=== PATIENT | male | born 1945 | race Caucasian/White ===

== ENCOUNTER 2020-10-08 15:17 | Outpatient (REF) | payer MEDICARE, SELFPAY | END 2020-10-08 15:18 | disposition home or self-care (01) | LOC: HO.LAB 15:17 | PROVIDERS: PCP Internal Medicine; Visit Provider Internal Medicine | DX: Z20.828 Contact with and (suspected) exposure to other viral communicable diseases (principal) | CPT/HCPCS: C9803; U0003 ==

== ENCOUNTER 2021-01-21 11:02 | Emergency (ER) | payer OTHER, MEDICARE, SELFPAY ==
--- NOTE | ~2021-01-21 | CT_ITS ---
EXAMINATION: CT HEAD WITHOUT CONTRAST CLINICAL INFORMATION: Dizziness COMPARISON: None TECHNIQUE: Contiguous axial imaging was performed from the skull base to vertex without intravenous administration of contrast. This CT examination was performed using dose optimization techniques as appropriate, variously including the following: *Automated exposure control *Adjustment of mA and/or kV according to patient size (this includes techniques or standardized protocols for targeted exams where dose is matched to indication/reason for exam; i.e. extremities or head) *Use of iterative reconstruction technique DLP: 77 mGy-cm FINDINGS: There is no evidence of acute intracranial hemorrhage or territorial infarction. No abnormal mass effect or midline shift is seen. Galvan to white matter differentiation is well preserved. No extra-axial fluid collections are identified. The ventricles are normal in size. There is no abnormal attenuation within the brain parenchyma. The osseous structures and soft tissues are normal. The mastoid air cells and visualized portions of the paranasal sinuses are well aerated. CT/CT head/brain wo con IMPRESSION: Unremarkable exam.
[2021-01-21 11:11] VITALS: BP 127/75; PULSE 61; RESP 16; TEMP 36.6; O2SAT 94; BMI 29.7
[2021-01-21 12:07] VITALS: BP 128/57; PULSE 61
[2021-01-21 12:08] VITALS: BP 142/67; PULSE 58
[2021-01-21 12:09] VITALS: BP 133/76; PULSE 66
--- NOTE | 2021-01-21 12:18 | ECG_ITS ---
Test Reason : DIZZINESS Blood Pressure : / mmHG Vent. Rate : 057 BPM Atrial Rate : 057 BPM P-R Int : 176 ms QRS Dur : 102 ms QT Int : 474 ms P-R-T Axes : 045 -12 016 degrees QTc Int : 461 ms Sinus bradycardia Otherwise normal ECG No previous ECGs available Referred By: Generic ED Physician Electronically Signed By:PORTIA SIEGEL MD
--- NOTE | 2021-01-21 12:38 | ED_ITS ---
HPI - Dizziness General Chief Complaint: Dizziness Stated Complaint: dizziness Time Seen by Provider: 01/21/21 12:33 Source: patient Mode of arrival: ambulatory Limitations: no limitations History of Present Illness HPI Narrative: Patient states at 6am he got up and the room was spinning with nausea and vomiting MD elicited complaint: dizziness and difficulty walking Onset (ago): hour(s) Timing: sudden onset Severity: moderate Description: sense of movement and room spinning Exacerbating factors: movement/ambulation Associated symptoms: nausea and vomiting Related Data Home Medications Medication Instructions Recorded Confirmed amlodipine 10 mg tablet 10 mg PO DAILY 01/21/21 amlodipine 5 mg tablet 5 mg PO DAILY 01/21/21 atorvastatin 20 mg tablet 20 mg PO DAILY 01/21/21 clonidine 0.2 mg/24 hr weekly patch TRANSDERMAL 01/21/21 transdermal patch famotidine 20 mg tablet 20 mg PO BID 01/21/21 fluoxetine 20 mg tablet 20 mg PO DAILY 01/21/21 furosemide 20 mg tablet 20 mg PO DAILY 01/21/21 prednisone 20 mg tablet mg PO 01/21/21 Previous Rx's Medication Instructions Recorded meclizine 25 mg PO TID PRN #20 tab 01/21/21 Allergies Allergy/AdvReac Type Severity Reaction Status Date / Time quinlon Allergy Unknown Uncoded 01/21/20 00:00 sulfur Allergy Unknown Uncoded 01/21/20 00:00 Review of Systems Constitutional: Constitutional: Reports no additional constitutional complaints Eyes: Eyes: Reports no additional eye complaints ENT: Denies dizziness Cardiovascular: Cardiovascular: Reports no additional cardiovascular complaints Respiratory: Respiratory: Reports as per HPI Gastrointestinal: Gastrointestinal: Reports no additional gastrointestinal complaints Musculoskeletal: Musculoskeletal: Reports no additional musculoskeletal complaints Integumentary/Breasts: Skin/Breast: Denies rash Neurologic: Reports system reviewed and no additional complaints, except as documented, Denies dizziness and Denies Sensory deficit (Neuro) Psychiatric: Psychiatric: Denies anxiety [facility] Past Medical History Medical History Acute kidney failure High cholesterol HTN (hypertension) Social History Social History Alcohol intake: never Smoking Status: Never smoker Use of substances other than those prescribed or required for medical reasons: No Advance Directives: No Advance Directives Information Provided: Yes Physical Exam Vital Signs: Vital Signs: Last Vital Signs Temp 97.8 F 01/21/21 13:01 Pulse 60 01/21/21 14:18 Resp 19 01/21/21 14:18 BP 156/84 H 01/21/21 14:18 Pulse Ox 95 01/21/21 14:18 Body Mass Index 29.7 Const: General: healthy appearing Nutritional Appearance: average body habitus Orientation/consciousness: oriented to person and patient oriented x3 Limitations: no limitations HENMT: Head: Yes normal to inspection Ears: external ears normal General nose exam: Normal external nose present Mouth: Normal oral and palatal mucosa present and oropharynx normal Throat: Yes posterior oropharynx normal Eyes: General: appearance normal, both eyes and all related structures Neck: Other: supple Neck: Yes normal visual inspection Chest: Chest palpation & inspection: normal inspection of the chest Resp: Auscultation: clear to auscultation bilaterally Cardio: Jugular venous distension: no JVD Rate: regular rate Rhythm: regular rhythm Heart sounds: S1 normal heart sound present and S2 normal heart sound present GI: Inspection: Yes normal to inspection Palpation (GI): Soft to palpation, nontender and No hepatosplenomegaly present Auscultation: normal bowel sounds : General: Yes no CVA tenderness Back/Spine/Pelvis: Back: no CVA tenderness Skin: General skin exam: no rashes or lesions noted Neuro: General: oriented to person and patient oriented x3 Cranial nerves: Yes CN's II-XII intact bilaterally Motor exam (neuro): 5/5 motor strength present throughout Sensory Exam: No Sensory deficit (Neuro) Extrem: General: Yes normal to inspection Psych: Appearance: grossly normal Course Course Course Narrative: Alia negative Reevaluation(s) Reevaluation #1: Patient able to ambulate slightly dizzy with downward gaze, negative nystagmus, will dc on meclizine MDM - Dizziness MDM Narrative Medical decision making narrative: Patient with normal CT head, normal labs except for anemia and Creatinine which patient states is old. History consistent with vertigo jason reassess after meclizine Differential Diagnosis Differential diagnosis: Likely benign paroxysmal positional vertigo, vertebral basilar insufficiency and transient cerebral ischemia Lab Data Result diagrams: 01/21/21 13:12 01/21/21 12:24 Labs: Lab Results 01/21/21 01/21/21 01/21/21 Range/Units 12:24 12:24 12:24 WBC (4.8-10.8) X10*3/uL RBC (4.60-5.80) X10*6/uL Hgb (14.0-18.0) g/dl Hct (42-52) % MCV (80-98) fL MCH (27.0-33.0) pg MCHC (31.0-36.0) g/dl RDW (11.0-16.0) % Plt Count (160-400) X10*3/uL MPV (9.4-12.4) fL Immature Gran % (Auto) (0.0-0.4) % Neut % (Auto) (45-73) % Lymph % (Auto) (20-40) % [place] % (Auto) (2-11) % Eos % (Auto) (0-4) % Baso % (Auto) (0-2) % Lymph # (Auto) (1.2-4.9) X10*3/uL [place] # (Auto) (0.1-1.2) X10*3/uL Eos # (Auto) (0.0-0.4) X10*3/uL Baso # (Auto) (0.0-0.2) X10*3/uL Abs Immat Gran (auto) (0.00-0.03) X10*3/uL Absolute Neuts (auto) (2.0-8.3) X10*3/uL Absolute Nucleated RBC (0.0-0.012) X10*3/uL Nucleated RBC % (auto) (0.0-0.2) /100WBC Hold Blue Top SEE NOTE Sodium 141 (135-145) mmol/L Potassium 4.2 (3.3-5.1) mmol/L Chloride 104 (96-108) mmol/L Carbon Dioxide 26 (22-29) mmol/L Anion Gap 15 (12-20) BUN 19 H (9-16) mg/dL Creatinine 2.50 H (0.5-1.4) mg/dL Estim Creat Clear Calc 24.6 Estimated GFR 25 Random Glucose 109 (60-115) mg/dL Calcium 10.1 (8.4-10.2) mg/dL Troponin I High Sens 6.0 (<3.5-35.0) ng/L 01/21/21 Range/Units 13:12 WBC 6.6 (4.8-10.8) X10*3/uL RBC 3.43 L (4.60-5.80) X10*6/uL Hgb 10.4 L (14.0-18.0) g/dl Hct 31.7 L (42-52) % MCV 92.4 (80-98) fL MCH 30.3 (27.0-33.0) pg MCHC 32.8 (31.0-36.0) g/dl RDW 12.3 (11.0-16.0) % Plt Count 287 (160-400) X10*3/uL MPV 10.4 (9.4-12.4) fL Immature Gran % (Auto) 0.3 (0.0-0.4) % Neut % (Auto) 75.2 H (45-73) % Lymph % (Auto) 14.0 L (20-40) % [place] % (Auto) 8.7 (2-11) % Eos % (Auto) 0.9 (0-4) % Baso % (Auto) 0.9 (0-2) % Lymph # (Auto) 0.9 L (1.2-4.9) X10*3/uL [place] # (Auto) 0.6 (0.1-1.2) X10*3/uL Eos # (Auto) 0.1 (0.0-0.4) X10*3/uL Baso # (Auto) 0.1 (0.0-0.2) X10*3/uL Abs Immat Gran (auto) 0.02 (0.00-0.03) X10*3/uL Absolute Neuts (auto) 5.0 (2.0-8.3) X10*3/uL Absolute Nucleated RBC 0.000 (0.0-0.012) X10*3/uL Nucleated RBC % (auto) 0.0 (0.0-0.2) /100WBC Hold Blue Top Sodium (135-145) mmol/L Potassium (3.3-5.1) mmol/L Chloride (96-108) mmol/L Carbon Dioxide (22-29) mmol/L Anion Gap (12-20) BUN (9-16) mg/dL Creatinine (0.5-1.4) mg/dL Estim Creat Clear Calc Estimated GFR Random Glucose (60-115) mg/dL Calcium (8.4-10.2) mg/dL Troponin I High Sens (<3.5-35.0) ng/L Imaging Data CT scan - head: Radiologist's impression: no acute findings ECG Data Attestation: I personally reviewed and interpreted this ECG as follows: Interpretation: normal sinus rate of 50, bradycardia, no st or twave changes Discharge Plan Discharge Clinical Impression: Benign paroxysmal positional vertigo Qualifiers: Laterality: unspecified laterality Qualified Code(s): H81.10 - Benign paroxysmal vertigo, unspecified ear Patient Disposition: Home, Self-Care Instructions: Benign Paroxysmal Positional Vertigo (ED) Prescriptions: New meclizine 25 mg tablet 25 mg PO TID PRN (Reason: dizziness) Qty: 20 RF: 0 No Action amlodipine 5 mg tablet 5 mg PO DAILY RF: 0 furosemide 20 mg tablet 20 mg PO DAILY RF: 0 fluoxetine 20 mg tablet 20 mg PO DAILY RF: 0 atorvastatin 20 mg tablet 20 mg PO DAILY RF: 0 famotidine 20 mg tablet 20 mg PO BID RF: 0 clonidine 0.2 mg/24 hr patch weekly transdermal RF: 0 prednisone 20 mg tablet PO RF: 0 amlodipine 10 mg tablet 10 mg PO DAILY RF: 0 Referrals: Idris Bright MD [Primary Care Provider] - 2 days
[2021-01-21 12:56] LABS: Anion Gap 15 (12-20); Blood Urea Nitrogen 19 mg/dL (9-16); Calcium 10.1 mg/dL (8.4-10.2); Carbon Dioxide 26 mmol/L (22-29); Chloride 104 mmol/L (96-108); Creatinine Clr Calc Pharmacy 24.6; Estimated Glomerular Filt Rate 25; Glucose Random 109 mg/dL (60-115); Potassium 4.2 mmol/L (3.3-5.1); Sodium 141 mmol/L (135-145)
[2021-01-21] MEDS: Meclizine HCl 25 MG TABLET 50 MG PO (13:00)
[2021-01-21 13:01] VITALS: BP 145/78; PULSE 62; RESP 12; TEMP 36.6; O2SAT 98
[2021-01-21 13:19] LABS: MANUAL DIFF FLAG NO
[2021-01-21 13:21] LABS: Basophils Absolute Auto 0.1 X10*3/uL (0.0-0.2); Basophils Percent Auto 0.9 % (0-2); Eosinophils Absolute Auto 0.1 X10*3/uL (0.0-0.4); Eosinophils Percent Auto 0.9 % (0-4); Hematocrit 31.7 % (42-52); Hemoglobin 10.4 g/dl (14.0-18.0); Imm Gran Abs Auto 0.02 X10*3/uL (0.00-0.03); Imm Gran Pct Auto 0.3 % (0.0-0.4); Lymphocytes Absolute Auto 0.9 X10*3/uL (1.2-4.9); Mean Corpuscular HGB Conc 32.8 g/dl (31.0-36.0); Mean Corpuscular Hemoglobin 30.3 pg (27.0-33.0); Mean Corpuscular Volume 92.4 fL (80-98); Mean Platelet Volume 10.4 fL (9.4-12.4); Monocytes Absolute Auto 0.6 X10*3/uL (0.1-1.2); Monocytes Percent Auto 8.7 % (2-11); Neutrophils Percent Auto 75.2 % (45-73); Platelet Count 287 X10*3/uL (160-400); Red Blood Count 3.43 X10*6/uL (4.60-5.80); Red Cell Distribution Width 12.3 % (11.0-16.0); White Blood Count 6.6 X10*3/uL (4.8-10.8)
[2021-01-21 14:18] VITALS: BP 156/84; PULSE 60; RESP 19; O2SAT 95
== END 2021-01-21 15:03 | disposition home or self-care (01) ==
PROVIDERS: Emergency Provider Emergency Medicine; PCP Internal Medicine
DX: H81.10 Benign paroxysmal vertigo, unspecified ear (principal); I10 Essential (primary) hypertension; Z79.899 Other long term (current) drug therapy
CPT/HCPCS: 36415; 70450; 80048; 84484; 85025; 93005; 99284

== ENCOUNTER 2025-06-15 00:33 | Emergency (ER) | payer MEDICARE, SELFPAY ==
[2025-06-15 00:44] VITALS: BP 148/83; PULSE 57; RESP 18; TEMP 36.6; O2SAT 97; BMI 26.6
[2025-06-15 01:40] LABS: Hematocrit 31.4 % (42.0-52.0); Hemoglobin 10.7 g/dl (14.0-18.0); Imm Gran Abs Auto 0.03 X10*3/uL (0.00-0.03); Imm Gran Pct Auto 0.4 % (0.0-0.4); Lymphocytes Absolute Auto 1.8 X10*3/uL (1.2-4.9); MANUAL DIFF FLAG NO; Mean Corpuscular HGB Conc 34.1 g/dl (31.0-36.0); Mean Corpuscular Hemoglobin 29.9 pg (27.0-33.0); Mean Corpuscular Volume 87.7 fL (80.0-98.0); NRBC Abs Auto 0.000 X10*3/uL (0.0-0.012); NRBC Pct Auto 0.0 /100WBC (0.0-0.2); Platelet Count 209 X10*3/uL (160-400); Red Blood Count 3.58 X10*6/uL (4.60-5.80); White Blood Count 7.8 X10*3/uL (4.8-10.8)
[2025-06-15 01:56] LABS: Alanine Aminotransferase 14 U/L (0-40); Albumin Level 3.9 g/dL (3.5-5.0); Alkaline Phosphatase 86 U/L (39-117); Anion Gap 11 (12-20); Aspartate Amino Transferase 24 U/L (5-37); Blood Urea Nitrogen 35 mg/dL (9-16); Calcium 9.0 mg/dL (8.4-10.2); Carbon Dioxide 24 mmol/L (22-29); Chloride 109 mmol/L (96-108); Creatinine Clr Calc Pharmacy 23.0; Estimated Glomerular Filt Rate 29; Potassium 4.3 mmol/L (3.3-5.1); Sodium 140 mmol/L (135-145); Total Protein 6.1 g/dL (6.5-8.0)
--- NOTE | 2025-06-15 02:24 | ED.GENADULT ---
HPI - General Adult General Chief complaint: Animal Bite Stated complaint: cat scratch left arm swollen Time Seen by Provider: 06/15/25 02:14 Source: patient Mode of arrival: ambulatory Limitations: no limitations History of Present Illness ED Provider: Nikunj FITZGERALD HPI narrative: The patient is an 80-year-old male presenting to the ED for evaluation of multiple cat scratches to his left arm, primarily of the forearm but also advancing into the humerus. Patient reports 2 days ago he took ownership of a CAT that was a stray, reports a friend advised them they found a cat and it needed a home. The patient reports tonight the cat was acting normally, patient was petting the cat on the couch when it became angered and clamped its claws into his forearm. The patient does not believe the cat bit him but he can not confirm this. The patient reports since the incident occurred he has developed swelling and tenderness of the areas of injury. The patient denies associated fever/chills, nausea, vomiting, or advancing erythema. The patient reports he does not know the cat's vaccination status but reports prior to the incident that cat was acting at baseline, did not appear cachectic, no foaming at the mouth, and the cat is still in his care and is able to be monitored/quarantined for observation. Related Data Home Medications ?Medication ?Instructions ?Recorded ?Confirmed amlodipine 10 mg tablet 10 mg PO DAILY 01/21/21 amlodipine 5 mg tablet 5 mg PO DAILY 01/21/21 atorvastatin 20 mg tablet 20 mg PO DAILY 01/21/21 clonidine 0.2 mg/24 hr weekly patch transdermal 01/21/21 transdermal patch famotidine 20 mg tablet 20 mg PO BID 01/21/21 fluoxetine 20 mg tablet 20 mg PO DAILY 01/21/21 furosemide 20 mg tablet 20 mg PO DAILY 01/21/21 prednisone 20 mg tablet mg PO 01/21/21 Previous Rx's ?Medication ?Instructions ?Recorded meclizine 25 mg tablet 25 mg PO TID PRN dizziness #20 tabs 01/21/21 amoxicillin 875 mg-potassium 1 tab PO BID #10 tabs 06/15/25 clavulanate 125 mg tablet azithromycin 250 mg tablet See Rx Instructions PO .COMPLEX #6 06/15/25 (Zithromax Z-Adarsh) tabs ibuprofen 600 mg tablet 600 mg PO Q8H PRN fever or pain 06/15/25 #30 tabs Allergies Allergy/AdvReac Type Severity Reaction Status Date / Time quinlon Allergy Unknown Unknown Uncoded 06/15/25 00:49 sulfur Allergy Unknown Unknown Uncoded 06/15/25 00:49 Review of Systems Review of Systems: Yes all other systems are reviewed and are negative [facility] Past Medical History Medical History Acute kidney failure High cholesterol HTN (hypertension) Social History Social History Alcohol intake: never Advance Directives: No Advance Directives Information Provided: No Physical Exam ED Vital Signs: Vital Signs - 24 hr 06/15/25 00:44 06/15/25 02:47 06/15/25 02:48 Temperature 97.9 F 98.0 F 98.0 F Pulse Rate 57 55 55 Respiratory Rate 18 18 18 Blood Pressure 148/83 H 147/89 H 147/89 H Pulse Oximetry 97 97 97 Oxygen Delivery Method Room Air Room Air Room Air BMI result Body Mass Index 26.6 CONSTITUTIONAL: The patient appears non-toxic, well nourished and in no acute distress. Vital signs as documented. HEAD: Atraumatic, normocephalic. EYES: EOMs grossly intact, pupils equal, conjunctiva clear, no exudate. ENT: Nares patent, no discharge. Airway patent, no audible stridor, visible mucosa is pink and moist without noted lesions. NECK: Trachea is midline, no obvious masses or gross abnormalities. CHEST: Symmetric movement, normal appearance. LUNGS: LS present and CTAB, no w/r/r. Non-labored work of breathing. CARDIAC: Regular Rhythm, S1/S2 appreciated, no murmurs, rubs or gallops. ABDOMEN: Abdomen soft and non-tender x4 quadrants, no palpable masses or organomegaly. : Deferred. EXTREMITIES: Normal tone, moves all extremities spontaneously without reported pain. No obvious acute injury or deformity noted. NEURO: Alert and oriented x3, CN II-XII appear grossly intact. Cerebellar Functioning grossly intact. No obvious sensory or motor deficits. Speech clear and appropriate. PSYCH: normal affect, appropriate eye contact, fluid speech, with appropriate response to questioning. No reported suicidality or homicidality. SKIN: Warm, dry, color appropriate, normal turgor. The left forearm demonstrates multiple abrasions consistent with cat scratch with localized swelling and mild erythema and tenderness, without advancing lymphangitis or rapidly expanding erythema. No other rashes noted. Distal CSM is intact, no impaired or painful range of motion. Medications Administered Discontinued Medications Generic Name Dose Route Start Last Admin Trade Name Janak PRN Reason Stop Dose Admin Acetaminophen 975 mg 06/15/25 02:23 06/15/25 02:41 Acetaminophen 325 Mg Tablet PO 06/15/25 02:24 975 mg ONCE ONE Administration Amoxicillin/Clavulanate Potassium 875 mg 06/15/25 02:18 06/15/25 02:41 Amoxicillin/Potassium Clav 875 Mg Tablet PO 06/15/25 02:19 875 mg ONCE ONE Administration Azithromycin 500 mg 06/15/25 02:18 06/15/25 02:41 Azithromycin 500 Mg Tablet PO 06/15/25 02:19 500 mg ONCE ONE Administration Ibuprofen 600 mg 06/15/25 02:23 06/15/25 02:41 Ibuprofen 600 Mg Tablet PO 06/15/25 02:24 600 mg ONCE ONE Administration Medical Decision Making Medical Decision Making MDM Narrative: 2:28 AM 06/15/2025 (Timbo FITZGERALD): Patient is an 80-year-old male presenting to the ED for evaluation after a cat scratch from a cat which is new to him in the last 2 days but is still in his care and able to be quarantined. Patient reports cat was acting at baseline while being PET on the couch, and then clawed at the patient's arm. No indication for rabies vaccination at this time. The patient in the ED is well-appearing, nontoxic, arm reveals scratch cash with erythema and swelling, no advancing lymphangitis or rapidly expanding cellulitis. Laboratory evaluation shows no leukocytosis or anemia, CMP reveals no electrolyte abnormality, there is CKD however creatinine is improved compared to baseline. The patient's symptoms will be treated with azithromycin and Augmentin. We will treat pain with Tylenol and ibuprofen. Admission/Observation Consideration of admission/observation: Escalation of care including admission/observation considered Lab Data [facility] Lab Attestation statement: I reviewed the patient's lab results. 06/15/25 01:35 06/15/25 01:35 Labs: Lab Results 06/15/25 Range/Units 01:35 WBC 7.8 (4.8-10.8) X10*3/uL RBC 3.58 L (4.60-5.80) X10*6/uL Hgb 10.7 L (14.0-18.0) g/dl Hct 31.4 L (42.0-52.0) % MCV 87.7 (80.0-98.0) fL MCH 29.9 (27.0-33.0) pg MCHC 34.1 (31.0-36.0) g/dl RDW 12.7 (11.0-16.0) % Plt Count 209 (160-400) X10*3/uL MPV 10.4 (9.4-12.4) fL Immature Gran % (Auto) 0.4 (0.0-0.4) % Neut % (Auto) 60.0 (45-73) % Lymph % (Auto) 22.3 (20-40) % [place] % (Auto) 12.5 H (2-11) % Eos % (Auto) 4.3 H (0-4) % Baso % (Auto) 0.5 (0-2) % Lymph # (Auto) 1.8 (1.2-4.9) X10*3/uL [place] # (Auto) 1.0 (0.1-1.2) X10*3/uL Eos # (Auto) 0.3 (0.0-0.4) X10*3/uL Baso # (Auto) 0.0 (0.0-0.2) X10*3/uL Abs Immat Gran (auto) 0.03 (0.00-0.03) X10*3/uL Absolute Neuts (auto) 4.7 (2.0-8.3) x10*3/uL Absolute Nucleated RBC 0.000 (0.0-0.012) X10*3/uL Nucleated RBC % (auto) 0.0 (0.0-0.2) /100WBC Sodium 140 (135-145) mmol/L Potassium 4.3 (3.3-5.1) mmol/L Chloride 109 H (96-108) mmol/L Carbon Dioxide 24 (22-29) mmol/L Anion Gap 11 L (12-20) BUN 35 H (9-16) mg/dL Creatinine 2.19 H (0.5-1.4) mg/dL Estim Creat Clear Calc 23.0 Estimated GFR 29 Random Glucose 91 (60-115) mg/dL Calcium 9.0 D (8.4-10.2) mg/dL Total Bilirubin 0.4 (0.0-1.0) mg/dL AST 24 (5-37) U/L ALT 14 (0-40) U/L Alkaline Phosphatase 86 (39-117) U/L Total Protein 6.1 L (6.5-8.0) g/dL Albumin 3.9 (3.5-5.0) g/dL Discharge Plan Discharge Clinical Impression: Cat scratch of forearm Patient Disposition: Home, Self-Care Instructions: Animal Bite (ED), Cat Scratch Disease (ED), Abrasion (ED) Additional Instructions: Thank you for choosing [facility]'s Emergency Department for your care today. Your cat scratch today does not appear to have developed into a systemic infection. At this time there is no evidence of an acute process requiring admission to the hospital or continued ED observation, and it is safe to discharge you home. It is extremely important that you take both azithromycin and Augmentin as prescribed until they are finished. This is to reduce the likelihood of local infection but also reduce the possibility of cat scratch fever. If over the next 2-3 weeks you develop severely painful lymph nodes, fever, severe fatigue, or other concerning symptoms you should be re-evaluated in the emergency department. You may take alternating (staggered) doses of ibuprofen 600mg and Tylenol 1000mg every 4 hours as needed for any additional pain. If you do not have a primary care physician, please call the [facility] at [phone] to establish a new primary care physician. While waiting to establish your new primary care physician, you can call our [facility] at [phone] for non-emergency needs. Please return to the emergency department if you develop a severe or sudden change in your symptoms, a fever over 100.4 that does not improve with Tylenol or Ibuprofen, recurrent vomiting, or any other new or worsening symptoms or concerns. Prescriptions: New amoxicillin-pot clavulanate 875-125 mg tablet 1 tab PO BID Qty: 10 0RF azithromycin [Zithromax Z-Adarsh] 250 mg tablet See Rx Instructions .ROUTE .COMPLEX Qty: 6 0RF Rx Instructions: For 250 mg dose pack: take 500 mg today (day 1), then 250 mg for 4 days (days 2-5) ibuprofen 600 mg tablet 600 mg PO Q8H PRN (Reason: fever or pain) Qty: 30 0RF No Action meclizine 25 mg tablet 25 mg PO TID PRN (Reason: dizziness) Qty: 20 0RF amlodipine 5 mg tablet 5 mg PO DAILY furosemide 20 mg tablet 20 mg PO DAILY fluoxetine 20 mg tablet 20 mg PO DAILY atorvastatin 20 mg tablet 20 mg PO DAILY famotidine 20 mg tablet 20 mg PO BID clonidine 0.2 mg/24 hr patch weekly transdermal prednisone 20 mg tablet PO amlodipine 10 mg tablet 10 mg PO DAILY Referrals: Sofi Quiros NP [Primary Care Provider, Internal Medicine] Clinical Impression: Cat scratch of forearm Interventions: ED Discharge Assessment Last Done: 06/15/25 02:48 Discharge Date/Time: 06/15/25 03:02 Print Language: Chilean
[2025-06-15 02:47] VITALS: BP 147/89; PULSE 55; RESP 18; TEMP 36.7; O2SAT 97
[2025-06-15 02:48] VITALS: BP 147/89; PULSE 55; RESP 18; TEMP 36.7; O2SAT 97
== END 2025-06-15 03:02 | disposition home or self-care (01) ==
PROVIDERS: Emergency Provider Internal Medicine; PCP Nurse Practitioner Family
DX: S40.812A Abrasion of left upper arm, initial encounter (principal); W55.03XA Scratched by cat, initial encounter; Y93.9 Activity, unspecified; Y92.019 Unspecified place in single-family (private) house as the place of occurrence of the external cause; Y99.9 Unspecified external cause status; I10 Essential (primary) hypertension; E78.5 Hyperlipidemia, unspecified; Z79.02 Long term (current) use of antithrombotics/antiplatelets; Z79.899 Other long term (current) drug therapy
CPT/HCPCS: 36415; 80053; 85025; 99283; 99284